=== PATIENT | female | born 1990 | race Caucasian/White ===

== ENCOUNTER 2021-09-13 11:18 | Inpatient (IN) | payer OTHER, SELFPAY ==
[2021-09-13] MEDS ORDERED: Lidocaine 1% w/Epinephrine 1:100K 20 ML VIAL ONE (11:41)
[2021-09-13] MEDS ORDERED: Bacitracin 1 PK ONE (11:41)
[2021-09-13] MEDS ORDERED: Dextrose 5% in Water 1,000 ML IV PRN (12:05)
[2021-09-13] MEDS ORDERED: hydrALAZINE 20 MG/ML VIAL SLOW IVP PRN (12:05)
[2021-09-13] MEDS ORDERED: Ondansetron PF 4 MG/2 ML Vial IVP PRN (12:05)
[2021-09-13] MEDS ORDERED: Dextrose 50% Abboject 50 ML SYRINGE SLOW IVP PRN (12:05)
[2021-09-13] MEDS ORDERED: HumaLOG 300 UNITS/3 ML VIAL SC PRN (12:05)
[2021-09-13 12:07] LABS: #Lymphocytes 1.1 thou/uL (1.20-3.40); #Monocytes 0.5 thou/uL (0.11-0.59); %Eosinophils 0.4 % (0.0-10.0); %Lymphocytes 9.1 % (21.0-51.0); %Monocytes 4.3 % (0.0-10.0); %Neutrophils 86.2 % (42.0-75.0); Hemoglobin 13.8 g/dL (12.0-16.0); Mean Corpuscular HGB CONC 33.2 g/dL (32.0-36.0); Mean Corpuscular Hemoglobin 28.3 pg (27.0-31.0); Mean Corpuscular Volume 85.2 fL (78.0-98.0); Mean Platelet Volume 7.3 fL (7.4-10.4); Platelet Count 187 thou/uL (130-400); RBC Distribution Width 12.5 % (11.5-14.5); Red Blood Cell (RBC) Count 4.88 mill/uL (4.20-5.40); White Blood Cell (WBC) Count 11.5 thou/uL (4.8-10.8)
[2021-09-13] MEDS ORDERED: Acetaminophen 325 MG TAB PO SCH ×2 (12:15→13:15)
[2021-09-13 12:27] LABS: ALT (SGPT) 45 U/L (8-55); AST (SGOT) 53 U/L (5-34); Albumin 3.6 g/dL (3.5-5.0); Alcohol Less than 10 mg/dL (Less than 10); Alkaline Phosphatase 108 U/L (40-110); Anion Gap 14 mmol/L (10-20); BUN (Urea Nitrogen) 15 mg/dL (7.0-18.7); Bilirubin, Total 0.4 mg/dL (0.2-1.2); Calc. Creatinine Clearance 0 mL/min (70-130); Carbon Dioxide 27 mmol/L (22-29); Chloride 103 mmol/L (98-107); Globulin 2.9 g/dL (2.4-3.5); Glucose 279 mg/dL (70-105); Potassium 4.6 mmol/L (3.5-5.1); Protein, Total 6.5 g/dL (6.0-8.3); Sodium 139 mmol/L (136-145)
[2021-09-13 12:50] LABS: Hemoglobin A1c 8.4 % (4.0-6.0)
[2021-09-13] MEDS ORDERED: Acetaminophen/Codeine 30-300mg Tablet PO SCH (13:15)
[2021-09-13 13:18] LABS: Pregnancy Test - Urine (BHCG) Negative (Negative); Pregu Control Background? CLEAR/WHITE (CLR/WHITE); Pregu Control Bar Appear? YES (CONTROL BAR); Specific Gravity 1.056 (1.002-1.036)
[2021-09-13] MEDS: Acetaminophen 325 MG TAB PO SCH ×2 (17:03→23:59)
[2021-09-13] MEDS: Acetaminophen/Codeine 30-300mg Tablet PO SCH (17:03)
[2021-09-13] MEDS: Gabapentin 100 MG CAP PO SCH ×2 (17:04→21:42)
[2021-09-13] MEDS: Sodium Chloride 0.9% 1,000 ML IV SCH ×2 (17:06→21:49)
[2021-09-13 17:15] VITALS: BMI 32.5
[2021-09-13] MEDS ORDERED: Lorazepam 1 MG TAB PO PRN (18:03)
[2021-09-13] MEDS ORDERED: DULAGLUTIDE 1.5 MG/0.5 ML SC SCH (18:15)
[2021-09-13] MEDS ORDERED: Insulin Glargine 30 UNITS/0.3 ML VIAL SC SCH (21:00)
[2021-09-13] MEDS: Senokot S 8.6-50 MG TAB PO SCH (21:44)
[2021-09-13] MEDS: Famotidine 20 MG TAB PO SCH (21:44)
[2021-09-13] MEDS: Insulin Glargine 30 UNITS/0.3 ML VIAL SC SCH (21:45)
[2021-09-14] MEDS: Sodium Chloride 0.9% 1,000 ML IV SCH ×2 (02:25→04:46)
[2021-09-14] MEDS: Acetaminophen/Codeine 30-300mg Tablet PO SCH ×5 (06:01→23:18)
[2021-09-14] MEDS: Acetaminophen 325 MG TAB PO SCH ×2 (06:02→12:32)
[2021-09-14] MEDS: Pioglitazone HCl 15 MG TAB PO SCH (08:19)
[2021-09-14] MEDS: Gabapentin 100 MG CAP PO SCH (08:20)
[2021-09-14] MEDS: Famotidine 20 MG TAB PO SCH ×2 (08:20→21:00)
[2021-09-14] MEDS: Polyethylene Glycol 3350 17 GM Packet PO SCH (08:21)
[2021-09-14] MEDS: Senokot S 8.6-50 MG TAB PO SCH ×2 (08:21→20:59)
[2021-09-14] MEDS ORDERED: Insulin Glargine 30 UNITS/0.3 ML VIAL SC SCH (09:00)
[2021-09-14] MEDS ORDERED: Cyclobenzaprine 10 MG TAB PO PRN (13:38)
[2021-09-14] MEDS: Gabapentin 300 MG CAP PO SCH ×2 (14:20→20:59)
[2021-09-14] MEDS: Insulin Glargine 30 UNITS/0.3 ML VIAL SC SCH (20:57)
[2021-09-15] MEDS: Acetaminophen/Codeine 30-300mg Tablet PO SCH ×4 (05:44→23:22)
[2021-09-15] MEDS: Pioglitazone HCl 15 MG TAB PO SCH (09:32)
[2021-09-15] MEDS: Gabapentin 300 MG CAP PO SCH ×3 (09:32→21:35)
[2021-09-15] MEDS: Senokot S 8.6-50 MG TAB PO SCH ×2 (09:32→21:36)
[2021-09-15] MEDS: Famotidine 20 MG TAB PO SCH ×2 (09:33→21:35)
[2021-09-15] MEDS: Polyethylene Glycol 3350 17 GM Packet PO SCH (09:33)
[2021-09-15] MEDS ORDERED: Ketorolac Tromethamine 30 MG/ML VIAL IVP SCH ×2 (10:00→18:00)
[2021-09-15] MEDS: Insulin Glargine 30 UNITS/0.3 ML VIAL SC SCH (21:35)
[2021-09-16] MEDS: Acetaminophen/Codeine 30-300mg Tablet PO SCH ×3 (05:45→18:11)
[2021-09-16] MEDS: Senokot S 8.6-50 MG TAB PO SCH (09:25)
[2021-09-16] MEDS: Famotidine 20 MG TAB PO SCH (09:25)
[2021-09-16] MEDS: Gabapentin 300 MG CAP PO SCH ×2 (09:25→15:10)
[2021-09-16] MEDS: Pioglitazone HCl 15 MG TAB PO SCH (09:25)
[2021-09-16] MEDS: Polyethylene Glycol 3350 17 GM Packet PO SCH (09:27)
[2021-09-16] MEDS: PHENTERMINE HCL 37.5 MG PO SCH ×2 (14:57→14:59)
[2021-09-16 16:07] VITALS: BP 132/89; TEMP 98.2
== END 2021-09-16 18:40 | disposition home or self-care (01) | DRG 86 ==
LOC: ERS 11:18 → SURG B 12:09
PROVIDERS: ADMIT Surgery; ATTEND Surgery
DX: S06.6X0A Traumatic subarachnoid hemorrhage without loss of consciousness, initial encounter (principal); S22.089A Unspecified fracture of T11-T12 vertebra, initial encounter for closed fracture; S32.019A Unspecified fracture of first lumbar vertebra, initial encounter for closed fracture; S32.029A Unspecified fracture of second lumbar vertebra, initial encounter for closed fracture; Z20.822 Contact with and (suspected) exposure to COVID-19; S82.51XA Displaced fracture of medial malleolus of right tibia, initial encounter for closed fracture; R91.8 Other nonspecific abnormal finding of lung field; E11.9 Type 2 diabetes mellitus without complications; I10 Essential (primary) hypertension; R40.2362 Coma scale, best motor response, obeys commands, at arrival to emergency department; R40.2142 Coma scale, eyes open, spontaneous, at arrival to emergency department; R40.2252 Coma scale, best verbal response, oriented, at arrival to emergency department; F17.210 Nicotine dependence, cigarettes, uncomplicated; V68.5XXA Driver of heavy transport vehicle injured in noncollision transport accident in traffic accident, initial encounter; Y92.415 Exit ramp or entrance ramp of street or highway as the place of occurrence of the external cause; Z90.710 Acquired absence of both cervix and uterus; Z28.21 Immunization not carried out because of patient refusal; Z79.899 Other long term (current) drug therapy; Z79.4 Long term (current) use of insulin; Z79.1 Long term (current) use of non-steroidal anti-inflammatories (NSAID)
CPT/HCPCS: 12001; 36415; 36416; 51702; 70450; 70486; 80053; 80307; 81025; 83036; 85025; J1815; J1885; J7050; U0003; U0005